=== PATIENT | female | born 1980 | race Caucasian/White ===

== ENCOUNTER 2019-03-29 12:15 | Emergency (ER) | payer OTHER ==
[~2019-03-29] VITALS: Ht 157.5 cm; Wt 117.9 kg
[~2019-03-29 12:15] MED LIST: FLONASE 0.05%50 MCG NASAL; IBUPROFEN 200200 M1; IBUPROFEN 800800 MG PO; MEDROLDOSEPACK PO; NOHOMEMEDICATIONS; NORCO 5-325 TA1 EACH PO; PREDNISONE 5 MG5 MG PO; ZOFRAN 4 MG ORAL4 MG PO; ZYRTEC10 M4 PO
[2019-03-29 13:19] LABS: INFLUENZA A ANTIGEN Negative (Negative); INFLUENZA B ANTIGEN Negative (Negative)
[2019-03-29] MEDS ORDERED: CENTANY30 GM TOP (13:46)
[2019-03-29] MEDS ORDERED: AUGMENTIN 875-1 EACH PO (13:46)
[2019-03-29] MEDS ORDERED: TESSALON PERLE100 MG PO (13:46)
[2019-03-29 14:58] VITALS: BP 126/81
== END 2019-03-29 14:59 | disposition home or self-care (01) ==
LOC: M.ERS 12:15
PROVIDERS: Nurse Practitioner Family
DX: J20.9 Acute bronchitis, unspecified (principal); J02.0 Streptococcal pharyngitis; R59.1 Generalized enlarged lymph nodes; Z88.5 Allergy status to narcotic agent; Z87.442 Personal history of urinary calculi; Z90.49 Acquired absence of other specified parts of digestive tract; Z98.890 Other specified postprocedural states

== ENCOUNTER 2020-01-22 11:53 | Emergency (ER) | payer OTHER ==
[~2020-01-22] VITALS: Ht 157.5 cm; Wt 119.3 kg
[~2020-01-22 11:53] MED LIST changes: +AUGMENTIN 875-1 EACH PO; +CENTANY30 GM TOP; +TESSALON PERLE100 MG PO
[2020-01-22 13:00] LABS: INFLUENZA A ANTIGEN Negative (Negative); INFLUENZA B ANTIGEN Negative (Negative)
[2020-01-22] MEDS ORDERED: PREDNISONE 10 M10 MG PO (13:15)
[2020-01-22] MEDS ORDERED: TESSALON PERLE100 MG PO (13:15)
[2020-01-22] MEDS ORDERED: ZPAK PO (13:15)
[2020-01-22] MEDS ORDERED: VENTOLIN HFA 1818 GM INH (13:15)
[2020-01-22 13:30] VITALS: BP 144/73
== END 2020-01-22 13:45 | disposition home or self-care (01) ==
LOC: M.ERS 11:53
PROVIDERS: Nurse Practitioner Family
DX: U07.1 COVID-19 (principal); J45.909 Unspecified asthma, uncomplicated; Z88.5 Allergy status to narcotic agent; Z87.442 Personal history of urinary calculi; Z90.49 Acquired absence of other specified parts of digestive tract; Z98.890 Other specified postprocedural states